=== PATIENT | male | born 1960 | race Caucasian/White ===

== ENCOUNTER 2021-09-27 07:25 | Day surgery (SDC) | payer OTHER ==
[~2021-09-27] VITALS: Ht 177.8 cm; Wt 86.0 kg
--- NOTE | ~2021-09-27 | OR ---
[facility] [address] [place] [address] Draft DATE OF OPERATION: 09/27/2021 SURGEON: Penelope Myers MD, PH.D. PREOPERATIVE DIAGNOSIS: Prostate adenocarcinoma. POSTOPERATIVE DIAGNOSIS: Prostate adenocarcinoma. PROCEDURE: Rectal ultrasound-guided implantation of radioactive iodine-125 seeds into the prostate gland. ANESTHESIA: General. ESTIMATED BLOOD LOSS: Minimal. COMPLICATIONS: None. ANTIBIOTICS: IV levofloxacin. INDICATIONS: Arron Valentin is a 61-year-old gentleman, who was diagnosed with a bulky stage T2a N0 M0, [place] grade 3 + 4 equals 7, PSA 6.8, prostate adenocarcinoma. His prostate cancer was classified as unfavorable intermediate risk. He was treated with external beam radiation therapy to a dose of 45 Gy to the pelvic lymph nodes, seminal vesicles, and prostate gland ending on August 07, 2021. He also had SpaceOAR Hydrogel placed between the prostate gland and rectum prior to his radiation therapy. He is receiving this radioactive seed implant to provide a boost dose of radiation to the prostate gland. PRESCRIPTION DOSE: 110 Gy with iodine-125 seeds with 0.255 millicurie activity. OPERATIVE PROCEDURE: Following induction of adequate anesthesia, the patient was placed in the treatment PATIENT NAME: ARRON VALENTIN OPERATIVE REPORT DATE OF : 58 REPORT #: [id number] PHYSICIAN: PENELOPE MYERS PCP: ISIDRA,BENNY TRACEY DOG HANDLER REPORT IS CONFIDENTIAL AND NOT TO BE RELEASED WITHOUT AUTHORIZATION [facility] [address] [place], [place] [address] Draft planning dorsal lithotomy position. The perineum was prepped with Betadine and a Calhoun catheter was inserted into the bladder without difficulty. The scrotum was elevated onto the abdominal wall and secured. The fixation support system was fixed to the table and the ultrasound probe was affixed to the system. Transrectal ultrasound examination of the prostate gland was performed with a 6 megahertz probe, taking sagittal and transverse views to localize the prostate gland and to make sure the images matched the preoperative plan. Once the proper angulation and position were obtained, the apparatus was fixed in position. The template was then attached to the apparatus. Then, individual preloaded needles were inserted, one needle at the time through the template and perineal skin and into the prostate gland according to the preoperative plan. Each individual needle was identified on the ultrasound images and inserted into position as close as possible to the pretreatment plan on axial images. Two anchor needles were placed initially to help stabilize the prostate gland. Then, starting anteriorly, one row of needles were placed first. The proper depth of each needle was then confirmed on sagittal images and also by measuring the distance from the template to the hub of each needle with a ruler. Then, needles were slowly withdrawn with the stylet in place, so that the stranded seeds were placed in the prostate gland in the proper position. Then, subsequently, rows of needles were placed, one at a time with placement of all the seeds from each row before proceeding to the next row. The seeds from the anchor needles were deployed just prior to inserting the needles for the 1.5 row. AP pelvic x-rays were also taken periodically to confirm the proper position of the radioactive seeds. The treatment plan called for 102 seeds to be implanted. However, the ultrasound probe was repositioned prior to inserting the needles for the 1.5 row. Therefore, there appeared to be a relative lack of seeds at the 2.0 row. Therefore, a total of an additional 10 seeds were placed at various positions and depths to add more dose to the posterior prostate gland and to better cover this area. Therefore, a total of 112 seeds were placed into the prostate gland using a total of 34 needles for a total activity of 28.56 millicuries. The prostate gland seemed to be somewhat eccentric towards the right side of the pelvis, and some bony interference was encountered from the right pubic arch. Despite this, a reasonable placement of seeds into the right lateral prostate gland was accomplished. Following the insertion of the seeds, an AP pelvic x-ray was taken, which revealed seeds to be in the proper position within the pelvis. The patient then had a cystoscopy performed by Dr. Louie (see separate operative report) with no seeds seen in the urethra or bladder. The patient tolerated the procedure well, was taken to the recovery room in good condition. The patient will have a voiding trial prior to discharge. PATIENT NAME: ARRON VALENTIN OPERATIVE REPORT DATE OF : 58 REPORT #: [id number] PHYSICIAN: PENELOPE MYERS PCP: BENNY MINER REPORT IS CONFIDENTIAL AND NOT TO BE RELEASED WITHOUT AUTHORIZATION [address] [address] [place] The patient will follow up with me in 1 month and will also have a CT scan of the pelvis performed for dosimetric evaluation. He was told to phone our office if he has any difficulties or problems. CONDITION: Stable. Penelope Myers MD, PH.D. MAY/MODL /[id number] cc: MD Benny Lara FNP Patrick W Gavin Copies: DAJUAN LOUIE MD, JAMIE JO FNP Gavin, Patrick W ~ PATIENT NAME: ARRON VALENTIN OPERATIVE REPORT DATE OF : 58 REPORT #: [id number] PHYSICIAN: PENELOPE MYERS PCP: BENNY MINER REPORT IS CONFIDENTIAL AND NOT TO BE RELEASED WITHOUT AUTHORIZATION
[~2021-09-27 07:25] MED LIST: FLOMAX0.4 MG PO
--- NOTE | 2021-09-27 13:06 | NUR ---
09/27/21 1306 Sybil Mercado 1250 PT TO PACU AWAKE AND ALERT DENIES PAIN OR NAUSEA, PT TOOK O2 MASK OFF UPON ENTERING PACU, HE REPORTS HE NEED TO VOID, URINAL WAS PROVIED PT WAS ABLE TO VOID 250ML OF BLOOD TINGED URINE, BLOOD CLOTS NOTED IN URINE. 1255 PT REPORTS NEEDING TO VOID AGAIN, HE WAS ABLE TO VOID IN URINAL 100ML OF BLOOD TINGED URINE NO BLOOD CLOTS NOTED.
--- NOTE | 2021-09-27 13:33 | NUR ---
1315 PATIENT BACK FROM PACU. REPORT RECIEVED FROM RE SAGE. PATIENT IS ALERT AND ORIENTED. DENIES ANY PAIN OR NAUSEA. PATIENT BREATHING EQUAL AND UNLABORED. OXYGEN SATURATIONS 95% ON ROOM AIR. NO DRAINAGE AT SURGICAL SITE. WATER AND PUDDING GIVEN TO PATIENT. CALL LIGHT WITHIN REACH NO FUTHER NEEDS. NO QUESTIONS AT THIS TIME. 1330 PATIENT UP WITH URINAL. PATIENT ABLE TO VOID 50 MLS OF BLOOD TINGED URINE. PATIENT BACK TO BED. CALL LIGHT WITHIN REACH NO FUTHER NEEDS. NO QUESTIONS AT THIS TIME.
--- NOTE | 2021-09-27 14:44 | NUR ---
1225 PATIENT HAS MET DISCHARGE CRITERIA. PATIENT INSTRUCTIONS GIVEN TO AND UNDERSTOOD. NO QUESTIONS AT THIS TIME. IV D/C'D WNL. PATIENT WAS WHEELED OUT OF FACILITY TO PRIVATE AUTO WITH . NO FUTHER NEEDS.
--- NOTE | 2021-09-28 09:32 | OR ---
[facility] [address] [place], [place] [address] Signed DATE OF OPERATION: 09/27/2021 SURGEON: Dajuan Louie MD PREOPERATIVE DIAGNOSIS: Prostate cancer, with need for intraoperative cystoscopy during brachytherapy seed placement. POSTOPERATIVE DIAGNOSIS: Prostate cancer, with need for intraoperative cystoscopy during brachytherapy seed placement. No evidence of any brachytherapy seed present within the bladder or urethra after completion of the procedure. ANESTHESIA: General. ESTIMATED BLOOD LOSS: None. COMPLICATIONS: None. SPECIMENS: None. DRAINS: None. INDICATIONS FOR PROCEDURE: Mr. Valentin is a 61-year-old gentleman who is currently undergoing brachytherapy seed placement by Dr. Gregg Myers for treatment of his prostate cancer. Dr. Myers has asked that I perform a diagnostic cystoscopy after completion of the radioactive seed placement to confirm that there has been no aberrant seed placement within the bladder or entire length of the urethra. FINDINGS: 1. On cystoscopy, there was no evidence of any suspicious masses, lesions or stones within the bladder. Bilateral ureteral orifices are in their normal anatomic location and effluxing clear urine. There was a small blood clot located at the base of the bladder. Thorough inspection of the bladder reveals no evidence of any brachytherapy Electronically Signed By: DAJUAN LOUIE MD 09/28/21 0932 PATIENT NAME: LISA VALENTIN OPERATIVE REPORT DATE OF : 58 REPORT #: [id number] PHYSICIAN: DAJUAN LOUIE MD PCP: CANDIDO MINER REPORT IS CONFIDENTIAL AND NOT TO BE RELEASED WITHOUT AUTHORIZATION [facility] [address] [place], [place] [address] Signed seed present within the bladder. 2. Ureteroscopy was performed, which reveals no evidence of any urethral stricture or stenosis. There was a good deal of friability of the prostatic urethra, consistent with his previous history of external beam radiation treatment. There is no evidence of any brachytherapy seed present within the prostatic urethra or within the entire length of the urethra. DESCRIPTION OF PROCEDURE: The patient has already been consented and is under general anesthetic. He is already in the dorsal lithotomy position and his genitalia has been prepped and draped in a standard sterile fashion. A 17-Danish flexible cystoscope was advanced through his urethra and into his bladder under direct visualization. Panendoscopic views of the bladder had then obtained including the lateral higgin[place]am, floor, dome and trigone areas. Please see above findings. I then slowly withdrew the camera, inspecting the entire length of the urethra including the prostatic urethra. Please see above findings. The cystoscope was then removed and then I straight catheterized the patient using a 15-Danish catheter to drain approximately 150 mL from the patient's bladder today. The procedure was then terminated. MD CHIARA Lara/NETTE /[id number] Copies: ~ Electronically Signed By: DAJUAN LOUIE MD 09/28/21 0932 PATIENT NAME: LISA VALENTIN OPERATIVE REPORT DATE OF : 58 REPORT #: [id number] PHYSICIAN: DAJUAN LOUIE MD PCP: CANDIDO MINER REPORT IS CONFIDENTIAL AND NOT TO BE RELEASED WITHOUT AUTHORIZATION
== END 2021-09-27 14:25 | disposition home or self-care (01) ==
LOC: DS 07:25 → US 08:00 → EDSTATUS 08:00 → DS 14:25
PROVIDERS: ATTEND Radiology Radiation Oncology
PROC: 0TJB8ZZ Inspection of Bladder, Via Natural or Artificial Opening Endoscopic (ICD-10-PCS; principal; 2021-09-27 09:30)
DX: C61 Malignant neoplasm of prostate (principal); Z96.651 Presence of right artificial knee joint; Z87.891 Personal history of nicotine dependence
CPT/HCPCS: 76000; 76873; 77470; C2638; J0330; J0461; J1100; J1885; J1956; J2250; J2405; J2704; J2765; J3010; J7121